=== PATIENT | male | born 1995 ===

== ENCOUNTER 2016-12-08 11:17 | Emergency (ER) | payer OTHER ==
[2016-12-08 11:23] VITALS: BP 120/72; RESP 18; O2SAT 98
[2016-12-08 11:24] VITALS: BMI 26.6
[2016-12-08 11:28] VITALS: TEMP 98.5
[2016-12-08] MEDS ORDERED: Lidocaine 1% Inj (20ml) INFIL ONE (11:29)
[2016-12-08] MEDS ORDERED: Bacitracin 500 Units/gm Oint Foilpak UD TOP ONE (11:29)
--- NOTE | 2016-12-08 11:30 | C.PDOC ---
History Of Present Illness 21 y/o male presents with laceration to distal left ring finger, caused by accidental knife cut, occurred just prior to arrival, denies numbness and tingling. last tdap unknown Time Seen by Provider: 12/08/16 11:28 Chief Complaint (Nursing): Abnormal Skin Integrity History Per: Patient History/Exam Limitations: no limitations Onset/Duration Of Symptoms: Hrs (1) Location Of Injury: Left: Hand (left ring finger) Quality Of Symptoms: Painful Past Medical History Reviewed: Historical Data, Nursing Documentation, Vital Signs Vital Signs: Last Vital Signs Temp 98.5 F 12/08/16 11:24 Pulse 75 12/08/16 13:04 Resp 18 12/08/16 13:04 BP 120/72 12/08/16 11:24 Pulse Ox 98 12/08/16 13:18 - Medical History PMH: No Chronic Diseases Surgical History: No Surg Hx Family History: States: Unknown Family Hx - Social History Hx Tobacco Use: No Hx Alcohol Use: Yes Hx Substance Use: No - Immunization History Hx Tetanus Toxoid Vaccination: No Hx Influenza Vaccination: No Hx Pneumococcal Vaccination: No Review Of Systems Constitutional: Negative for: Fever Musculoskeletal: Positive for: Hand Pain Skin: Positive for: Other (laceration) Neurological: Negative for: Weakness, Numbness Physical Exam - Physical Exam Appears: Non-toxic, No Acute Distress Skin: Warm, Dry, Other (1 .3 deep curved laceration to distal tip of left ring ( 4th) finger, no nail bed involvement. pt able to flex and extend left finger against resistance, sensation intact. ) Pulses: Left Radial: Normal Neurological/Psych: Oriented x3, Normal Speech, Normal Cognition, Normal Motor, Normal Sensation ED Course And Treatment O2 Sat by Pulse Oximetry: 98 Laceration - Laceration Repair left ring finger Wound Length (In cm): 1.3 Description Of Wound: Clean (curved) Anesthesia: Lidocaine 1% Wound Examination: Irrigated With Saline, No FB With Wound Exploration, No Tendon Injury With Wound Exploration Wound Closure: Suture Suture Technique And Material Used: Running, Interrupted (5 sutures of 4-0 prolene) Wound Complexity: Simple Medical Decision Making Medical Decision Making: pt given tdap, wound repaired. d/c with suture removal in 7-10 days. Disposition Counseled Patient/Family Regarding: Diagnosis, Need For Followup - Disposition Referrals: Clinic,Med Surg [Primary Care Provider] - [facility] [Outside] [facility] [Outside] Disposition: HOME/ ROUTINE Disposition Time: 12:54 Condition: IMPROVED Additional Instructions: Mantenga la herida limpia y seca. Deje el atuendo hasta maana; Luego despegar, jaden suavemente con agua y jabn, secar y aplicar un poco de ungento antibi luipllo y un bandaid. Volver a ER para cualquier signo de infeccin, angel enrojecimiento, hinchazn, drenaje purulento de la herida o cualquier otra preocupacin. [place] ibuprofeno 600 mg cada 6 horas (con alimentos) para el dolor si es necesario. Ir a la clnica en 7-10 concepcion para la eliminacin de sutura; Llame para kike danny. Instructions: Care For Your Stitches (ED), Laceration (ED) Forms: General Discharge Instructions Print Language: MEXICAN - Clinical Impression Clinical Impression: Laceration of left ring finger w/o foreign body w/o damage to nail
[2016-12-08] MEDS ORDERED: Bacitracin 500 Units/gm Oint Foilpak UD ONE (11:33)
[2016-12-08] MEDS ORDERED: Tetanus/Diphtheria Toxoids 0.5 ml Syringe IM ONE (11:33)
[2016-12-08] MEDS ORDERED: Lidocaine 1% Inj (20ml) ONE (11:33)
[2016-12-08 13:05] VITALS: PULSE 75
== END 2016-12-08 13:05 | disposition home or self-care (01) ==
LOC: SUPCPDRO 11:17 → C.ER 11:17
DX: S61.215A Laceration without foreign body of left ring finger without damage to nail, initial encounter (principal); W26.0XXA Contact with knife, initial encounter; Y93.89 Activity, other specified; Y92.000 Kitchen of unspecified non-institutional (private) residence as the place of occurrence of the external cause